=== PATIENT | male | born 1990 | race Caucasian/White ===

== ENCOUNTER 2017-04-10 02:42 | Emergency (ER) | payer OTHER ==
[~2017-04-10] VITALS: Ht 185.4 cm; Wt 78.4 kg
[2017-04-10 02:43] VITALS: BP 119/72
[2017-04-10] MEDS ORDERED: BUPIVACAINE/PF 0.5% ONE (03:15)
[2017-04-10] MEDS ORDERED: BACITRACIN ZINC OINT 500U/GM, 0.9 GM ONE (03:16)
[2017-04-10] MEDS ORDERED: DIPH,PERTUSS(ACELL),TET VAC/PF 0.5 ML IM-VACC ONE (03:30)
[2017-04-10] MEDS ORDERED: LIDOCAINE 2%, 20ML INFIL ONE (03:30)
== END 2017-04-10 03:51 | disposition home or self-care (01) ==
LOC: ED 03:45
DX: S61.411A Laceration without foreign body of right hand, initial encounter (principal); W19.XXXA Unspecified fall, initial encounter; Y93.89 Activity, other specified; Y92.89 Other specified places as the place of occurrence of the external cause; Y99.9 Unspecified external cause status
CPT/HCPCS: 99281